=== PATIENT | male | born 1950 | race Caucasian/White ===

== ENCOUNTER 2025-01-28 08:29 | Inpatient (IN) ==
--- NOTE | 2025-01-09 12:29 | PAT Medication Instructions ---
Medication Instructions Date of Service January 09, 2025 Home Medications Cbd Oil 1 dose topical DAILY aspirin 81 mg capsule 81 mg PO QAM cholecalciferol (vitamin D3) 50 mcg (2,000 unit) tablet (Vitamin D3) 50 mcg PO DAILY escitalopram oxalate 20 mg tablet (Lexapro) 20 mg PO QAM levothyroxine 100 mcg tablet 100 mcg PO QAM lisinopril 20 mg tablet 20 mg PO QAM liver extract 1 cap PO QPM loratadine 10 mg tablet (Claritin) 10 mg PO QAM ASK your prescriber and surgeon aspirin 81 mg capsule 81 mg PO QAM STOP taking 2 weeks before surgery liver extract 1 cap PO QPM STOP taking 24 hours before surgery Cbd Oil 1 dose topical DAILY DO NOT take the morning of surgery cholecalciferol (vitamin D3) 50 mcg (2,000 unit) tablet (Vitamin D3) 50 mcg PO DAILY lisinopril 20 mg tablet 20 mg PO QAM loratadine 10 mg tablet (Claritin) 10 mg PO QAM Take morning of surgery With a small sip of water, OTHERWISE NOTHING TO EAT OR DRINK AFTER MIDNIGHT: escitalopram oxalate 20 mg tablet (Lexapro) 20 mg PO QAM levothyroxine 100 mcg tablet 100 mcg PO QAM Other Notes If you have any questions please call us at [phone] or [phone] or [phone] or [phone]
--- NOTE | 2025-01-14 12:54 | Anesthesiology Consultation ---
Date of Service January 14, 2025 Assessment & Plan (1) Encounter for pre-operative examination: Chart Review Chart Review: Acceptable Risk for Surgery (pending surgeon ordered PCP and cardio clearance, most recent cardio note/cardio testing if available ) and Patient seen in Pre Admission Testing - Awaiting PCP clearance (Dr. Carlos Caldwell- [place]) 01/20/25 - Awaiting cardio clearance (patient to call and schedule appt) - [facility] - Please fax for most recent cardiology note (last seen around ) as well as for any ECHO/stress testing in past six years Hx of syncope post op day 1-2 after major surgeries- per patient has a "strong vagus nerve" per cardio Per PAT appt on 01/14/25, no recent illness/disease exposures, illness related symptoms, or recent illness/disease positive tests. Will leave to surgeon's discretion if preop Covid testing needed Teaching & Discussion Pre-Anesthesia Teaching/Discussion Notes: Instructed NPO after midnight before surgery,except medications with 15 cc of water. Medication instructions provided according to the PAT guidelines. History Surgery Operation Date: 01/28/25 10:25 Proposed Procedures p T6-T8 Decompression, T6-T8 Extension of Fusion with Spinal Cord Monitoring - Kenn Carias, Height/Weight Height: 5 ft 10 in Weight: 104.6 kg Allergies Allergy/AdvReac Type Severity Reaction Status Date / Time No Known Allergies Allergy Verified 01/09/25 10:08 Medications Home Medications Medication Instructions Recorded Confirmed Last Taken Cbd Oil 1 dose topical DAILY 01/09/25 01/09/25 Unknown aspirin 81 mg capsule 81 mg PO QAM 01/09/25 01/09/25 Unknown cholecalciferol (vitamin D3) 50 50 mcg PO DAILY 01/09/25 01/09/25 Unknown mcg (2,000 unit) tablet (Vitamin D3) escitalopram oxalate 20 mg tablet 20 mg PO QAM 01/09/25 01/09/25 Unknown (Lexapro) levothyroxine 100 mcg tablet 100 mcg PO QAM 01/09/25 01/09/25 Unknown lisinopril 20 mg tablet 20 mg PO QAM 01/09/25 01/09/25 Unknown liver extract 1 cap PO QPM 01/09/25 01/09/25 Unknown loratadine 10 mg tablet (Claritin) 10 mg PO QAM 01/09/25 01/09/25 Unknown ascorbic acid (vitamin C) 1,000 mg 1,000 mg PO DAILY 01/14/25 01/14/25 Unknown tablet (Vitamin C) coQ10 (ubiquinol) 100 mg capsule 100 mg PO DAILY 01/14/25 01/14/25 Unknown multivitamin 1 tab PO DAILY 01/14/25 01/14/25 Unknown omega-3 fatty acids 500 mg capsule 500 mg PO DAILY 01/14/25 01/14/25 Unknown vitamin E (dl, acetate) 180 mg 180 mg PO DAILY 01/14/25 01/14/25 Unknown (400 unit) capsule Past Medical History Medical History (Updated 01/14/25 @ 13:49 by Concha De PA-C) Anxiety Chronic back pain History of anesthesia reaction pt states he "always passes out a day or two after major surgeries" History of atrial fibrillation -2000- pt states he "takes his lisinopril for this"--followed with [facility] Dr. Love (has not seen cardio x 5 years) - was on atenolol in the past- now only on Lisinopril; no AC - only ASA 81mg History of pericarditis around - had possible fluid around the heart- possibly from virus- has not seen cardio since Hypertension Hypothyroidism Osteoarthritis Scoliosis Exercise / Class Metabolic Activity III < 4 Walking/Shop/Light housework (no chest pain or SOB with flat surface ambulation - uses can for ambulation for support ) Past Family History Family History Other No family history of adverse response to anesthesia Past Surgical History Surgical History History of arthroscopy of right knee History of cardioversion (2000) @ [place] History of colonoscopy History of lumbar spinal fusion (1994) L4 in [place] History of repair of right rotator cuff (06/2024) History of tonsillectomy History of wisdom tooth extraction S/P lumbar spinal fusion @ [facility] by Dr. Ramsay Status post correction of deviated nasal septum Past Anesthesia History No Hx of Anesthesia Complications (with exception to syncope on post op day 1-2 with major surgeries ) and No Family Hx of Anesthesia Complications History of PONV No Hx of PONV and No Hx of Motion Sickness Social History Smoking Status: Never smoker Do You Dip or Chew Tobacco: No Hx Alcohol Use: No Hx Substance Use: Yes (medical marijuana use (advised on policy)) substance use type: marijuana Last Used Substance: Unknown Review of Systems - Thoracic tightness from back issues- chronic/stable - Hx snoring- no hx of sleep study Patient denies chest pain, shortness of breath at rest, reflux, cough, wheezing, palpitations. No hx of seizures, stroke, [place]. No hx of blood clots or blood transfusions Physical Exam Vital Signs VITALS BP 127/73 P 64 TEMP 97.3 SP02 95% RESP 16 Constitutional no acute distress ENMT Mouth: no TMJ clicking Thyromental Distance: > or= 3.5 Finger Breadths (3.5) Mallampati Class: I Top upper teeth crowned Partial lower denture (permanent) Neck + limited neck extension Respiratory normal respiratory effort; no respiratory distress Auscultation: lungs clear to auscultation bilaterally; no wheezes Cardiovascular Rate/Rhythm: regular rate and regular rhythm Heart Sounds: no murmur Vessels: no carotid bruit Occ extra beat Musculoskeletal Spine: no pain with cervical ROM Extremities: extremities normal to inspection Psychiatric Orientation: alert Lab Results Anesthesia Preop Results Results Anesthesia Widget: WBC 6.21 K/ul (4.8-10.8) 01/14/25 Hgb 15.2 g/dl (14.0-18.0) 01/14/25 Hct 46.9 % (42.0-52.0) 01/14/25 Plt 231 K/uL (130-400) 01/14/25 Na 140 mmol/L (136-145) 01/14/25 K 4.8 mmol/L (3.5-5.1) 01/14/25 Cl 104 mmol/L (98-107) 01/14/25 CO2 31 mmol/L (21-32) 01/14/25 BUN 20 mg/dl (6-23) 01/14/25 Creat 1.05 mg/dl (0.6-1.4) 01/14/25 Glucose Level 85 mg/dl (70-99(Fasting)) 01/14/25 PT 11.0 Seconds (9.0-12.0) 01/14/25 PTT 29 Seconds (21-31) 01/14/25 INR 1.0 (0.9-1.1) 01/14/25 Urine Color Yellow 01/14/25 Urine Appearance Slightly Cloudy (Clear) 01/14/25 Urine pH 5.5 (4.5-7.5) 01/14/25 Urine Specific [place] 1.036 (1.000-1.030) H 01/14/25 Urine Protein Negative (Negative) 01/14/25 Urine Glucose (UA) Negative (Negative) 01/14/25 Urine Ketones Trace (Negative) H 01/14/25 Urine Blood Negative (Negative) 01/14/25 Urine Nitrite Negative (Negative) 01/14/25 Urine Bilirubin Negative (Negative) 01/14/25 Urine Urobilinogen Negative (Negative) 01/14/25 Urine Leukocyte Esterase Negative (Negative) 01/14/25 Urine WBC (Auto) 0-5 /hpf (0-5) 01/14/25 Urine RBC (Auto) 0-2 /hpf (0-2) 01/14/25 Urine Hyaline Casts (Auto) 3-5 /lpf (0-2) H 01/14/25 Urine Epithelial Cells (Auto) 0-2 /hpf (0-2) 01/14/25 Urine Bacteria (Auto) None Seen (None Seen) 01/14/25 Blood Type O Positive 01/14/25 Antibody Screen NEGATIVE 01/14/25 Testing Electrocardiogram Date: 01/14/25 Findings: + NSR @ (62bpm) Left axis deviation When compared to EKG from Sep 20, 2013- no significant change was found per cardio Chest X-Ray Date: 01/14/25 Findings: + NAD
[2025-01-28] MEDS ORDERED: DEXAMETHASONE SOD INJ 4 MG/ML VIAL ONE (08:43)
[2025-01-28] MEDS ORDERED: PROPOFOL IV EMULSION 10 MG/ML 20 ML VIAL IV ONE (08:43)
[2025-01-28] MEDS ORDERED: MIDAZOLAM HCL 1 MG/ML 2ML VIAL ONE ×2 (08:43→10:10)
[2025-01-28] MEDS ORDERED: ONDANSETRON INJ 2 MG/ML 2 ML VIAL ONE (08:43)
[2025-01-28] MEDS ORDERED: ROCURONIUM BROMIDE 10 MG/ML 5 ML VIAL IV ONE (08:43)
[2025-01-28] MEDS ORDERED: fentaNYL citrate PF 100 MCG/2 ML VIAL ONE (08:43)
[2025-01-28] MEDS ORDERED: LIDOCAINE 2% 2 ML VIAL/AMP(20MG/ML) INFIL ONE (08:54)
[2025-01-28] MEDS: LR 15ML/HR IV SCH (09:25)
[2025-01-28] MEDS: LR 60ML/HR IV SCH (09:28)
[2025-01-28] MEDS: CeleBREX 200 MG CAP PO SCH (09:29)
[2025-01-28] MEDS: GABAPENTIN 300 MG CAP PO SCH (09:29)
[2025-01-28] MEDS: ACETAMINOPHEN 500 MG TAB PO SCH (09:29)
--- NOTE | 2025-01-28 09:50 | History & Physical Bridge Note ---
Date of Service January 28, 2025 History & Physical Bridge Note I have examined the patient, reviewed the History & Physical and in the interval since the performance of the History & Physical I have noted the following changes of clinical significance: no changes noted
--- NOTE | 2025-01-28 09:51 | History & Physical Report ---
Date of Service January 28, 2025 Assessment & Plan (1) Myelopathy concurrent with and due to spinal stenosis of thoracic region: Plan: Decompression T6 T8 extension and fusion T6 T8 History of Present Illness Chief Complaint: Back pain and leg weakness Primary Care Provider: Carlos Rizo DO This is a 74-year-old male presents with progressive decline in function in lower extremities and thoracic spinal stenosis is subsequently here for surgery. Allergies Allergy/AdvReac Type Severity Reaction Status Date / Time No Known Allergies Allergy Verified 01/28/25 08:48 Home Medications Medication Instructions Recorded Confirmed Type Cbd Oil 1 dose topical DAILY 01/09/25 01/28/25 History aspirin 81 mg capsule 81 mg PO QAM 01/09/25 01/28/25 History cholecalciferol (vitamin D3) 50 50 mcg PO DAILY 01/09/25 01/28/25 History mcg (2,000 unit) tablet (Vitamin D3) escitalopram oxalate 20 mg tablet 20 mg PO QAM 01/09/25 01/28/25 History (Lexapro) levothyroxine 100 mcg tablet 100 mcg PO QAM 01/09/25 01/28/25 History lisinopril 20 mg tablet 20 mg PO QAM 01/09/25 01/28/25 History liver extract 1 cap PO QPM 01/09/25 01/28/25 History loratadine 10 mg tablet (Claritin) 10 mg PO QAM 01/09/25 01/28/25 History ascorbic acid (vitamin C) 1,000 mg 1,000 mg PO DAILY 01/14/25 01/28/25 History tablet (Vitamin C) coQ10 (ubiquinol) 100 mg capsule 100 mg PO DAILY 01/14/25 01/28/25 History multivitamin 1 tab PO DAILY 01/14/25 01/28/25 History omega-3 fatty acids 500 mg capsule 500 mg PO DAILY 01/14/25 01/28/25 History vitamin E (dl, acetate) 180 mg 180 mg PO DAILY 01/14/25 01/28/25 History (400 unit) capsule Past Med/Surg History Problem List (Updated 01/28/25 @ 09:51 by Kenn Carias DO) Myelopathy concurrent with and due to spinal stenosis of thoracic region Encounter for pre-operative examination Medical History (Updated 01/28/25 @ 09:51 by Kenn Carias DO) HLD (hyperlipidemia) Pericardial effusion History of in 2018 per cardio records History of anesthesia reaction pt states he "always passes out a day or two after major surgeries" Osteoarthritis Scoliosis Chronic back pain Hypothyroidism Anxiety Hypertension History of atrial fibrillation -2000 per records - on Lisinopril and ASA Surgical History History of colonoscopy History of cardioversion (2000) @ [facility] History of arthroscopy of right knee History of wisdom tooth extraction Status post correction of deviated nasal septum History of tonsillectomy S/P lumbar spinal fusion @ [facility] by Dr. Ramsay History of lumbar spinal fusion (1994) L4 in [place] History of repair of right rotator cuff (06/2024) Family History Other No family history of adverse response to anesthesia Social History Smoking Status: Never smoker Second Hand Exposure: No; Do You Dip or Chew Tobacco: No; Tobacco Cessation Education Requested by Patient: No Hx Alcohol Use: No Hx Substance Use: Yes (medical marijuana use (advised on policy)) Last Used Substance: Unknown Preferred Language: Montenegrin Communication Ability: Effective Hardboard Supervisor Required: No Beliefs That Will Affect Care: None Current Living Situation: Spouse Other Information That Helps Us Care for You: No Feels Safe at Home: Yes Safety Concerns: Feels Safe At This Time Assistive Devices: Cane and Glasses Assistive Devices Comment: reading glasses Physical Exam Physical Exam: Patient is alert and oriented Heart regular rhythm Lungs clear Results & Data Results & Data Vital Signs (Past 12 Hours) Vital Signs Temp Pulse Resp BP Pulse Ox O2 Del Method 01/28/25 09:01 36.5 C 72 20 167/88 H 96 Room Air
[2025-01-28] MEDS ORDERED: ATROPINE SULFATE 0.1 MG/ML 10ML SYR IV PRN (10:02)
[2025-01-28] MEDS ORDERED: ePHEDrine sulfate 50 MG/ML AMP IV PRN (10:02)
[2025-01-28] MEDS ORDERED: ONDANSETRON INJ 2 MG/ML 2 ML VIAL IV PRN ×2 (10:02→14:09)
[2025-01-28] MEDS ORDERED: REMIFENTANIL HCL 1 MG VIAL IV ONE (10:06)
[2025-01-28] MEDS: ceFAZolin 2000MG 2,000 MG/15 ML SYR IV SCH ×2 (10:20→18:11)
[2025-01-28] MEDS ORDERED: KETAMINE HCL 10MG/ML SYR ONE (10:31)
[2025-01-28] MEDS ORDERED: PROPOFOL IV EMULSION 10 MG/ML 100 ML VIAL IV ONE (10:59)
[2025-01-28] MEDS ORDERED: PHENYLEPHRINE 100MCG/ML 5ML SYR ONE (11:01)
[2025-01-28] MEDS ORDERED: ePHEDrine sulfate 50 MG/ML AMP ONE (11:01)
[2025-01-28] MEDS: BUPIVACAINE/EPINEPHRINE 0.25% 1:200,000 30 ML VIAL ONE (11:14)
[2025-01-28] MEDS: ceFAZolin 330 MG/ML 1 GM VIAL ONE (11:14)
[2025-01-28] MEDS: FLOSEAL HEMOSTATIC MATRIX 10ML TOP ONE (11:52)
--- NOTE | 2025-01-28 12:10 | Operative Report ---
Post Operative Report Pre & Post Diagnosis Operation Date: 01/28/25 10:25 Pre-Op Diagnosis: Thoracic spinal stenosis with myeloradiculopathy Post-Op Diagnosis: Same I identified the patient and participated in the time-out.: Yes Procedure Operation Date: 01/28/25 10:25 Actual Procedures #1 removal of posterior instrumentation rods and screws T8-T9. #2 exploration of fusion T8-T9. #3 decompression with bilateral medial facetectomies and foraminotomies T6-T7 T7-T8. #4 posterior spinal fusion T6-T8. #5 placement of posterior instrumentation using camber rods and screws T6-T8 with connectors. #6 placement locally harvested morselized autograft posterior gutters. #7 placement infuse collagen sponge, with Koros in the posterior gutters T6-T8. Surgeon Kenn Carias, DO Surfacing Technician June Hsu Estimated Blood Loss 100 Findings Consistent with Post-Op Diagnosis Specimens None Indications This is a 74-year-old male who presents above mentioned diagnosis. With his decline in status and myelopathy is here for surgical decompression. Description of Procedure Patient is met with identified informed consent obtained. Patient was then taken to the operative suite underwent the patient placed in a prone position on the Tim table the chest padded bolsters. All bony promises well-padded eyes inspected to ensure no external precipice upon. This point the thoracolumbar spine was prepped draped no sterile fashion. Sharp dissection with the assistance of Bovie cautery performed down to and exposing the lamina transverse processes of T6 TP 7 and instrumentation at T8-T9 with as well as the connectors to the previous construct. And then proceeded move the hardware bilaterally releasing the connectors. Explored the fusion mass T8 and T9 noting it to be mature and intact. Informed complete laminectomy of T7 with bilateral medial facetectomies and foraminotomies followed by complete laminectomy of T6 with bilateral medial facetectomies and foraminotomies addressing severe spinal stenosis. Pedicle screws then placed in T6-T7-T8 bilaterally with assistance of fluoroscopy and the appropriately sized kin contoured and placed and attached to the connectors. The transverse processes of T6-T7-T8 were then burred to subcortical the bone. Infuse collagen sponge bath Koros local autograft placed in posterior gutters. 15 round LITO drain inserted. The incision was then closed with 1 Vicryl the fascia 2-0 Vicryl subcutaneously and 4 Monocryl for final skin closure. Steri-Strips and sterile dressing placed. Patient waken taken to PACU in stable condition. Please note spinal cord monitoring was utilized at the procedure no changes noted. June Hsu was present at the entire surgery and while the patient positioning complex portion of the surgery and final skin closure. I attest to the content of the Intraoperative Record and any orders documented therein. Any exceptions are noted below.
[2025-01-28] MEDS ORDERED: HYDROmorphone INJ 2 MG/ML SYR/VIAL ONE (12:17)
[2025-01-28] MEDS ORDERED: SUGAMMADEX SODIUM 200 MG/2 ML VIAL IV ONE (12:35)
--- NOTE | 2025-01-28 12:43 | Fluoroscopy Report ---
FL thoracic spine 2V CLINICAL HISTORY: T6-T8 DECOMP, T6-T8 EXTENSION OF FUSION COMPARISON STUDY: None pertinent FLUOROSCOPY TIME: 23 seconds FLUOROSCOPY IMAGES: 3 EXPOSURE DOSE: 12.43 mGy FINDINGS: Fluoroscopic guidance provided. IMPRESSION: Refer to the operative report for evaluation based upon real time fluoroscopic observatio n. ACT 112: Negative or not required by law. Electronically signed by: Oksana Dalton M.D. 01/28/2025 12:42 PM
[2025-01-28] MEDS: PROMETHAZINE HCL 6.25 MG in SODIUM CHLORIDE 0.9% 50 ML IV PRN (12:45)
[2025-01-28] MEDS: fentaNYL citrate PF 100 MCG/2 ML VIAL IV PRN (12:48)
[2025-01-28] MEDS: HYDROmorphone INJ 2 MG/ML SYR/VIAL IV PRN (13:10)
--- NOTE | 2025-01-28 13:39 | Anesthesiology Progress Note ---
Date of Service January 28, 2025 Anesthesia Post Procedure Vital Signs Vital Signs: Temp Pulse Pulse Resp BP BP Pulse Ox 01/28/25 13:25 36.4 C L 96 H 18 140/89 99 01/28/25 13:15 97 H 18 108/75 98 01/28/25 13:05 98 H 17 145/87 H 98 01/28/25 12:55 96 H 17 157/79 H 98 01/28/25 12:45 94 H 17 161/86 H 99 01/28/25 12:35 94 H 17 154/87 H 97 01/28/25 12:27 36.1 C L 87 18 155/77 H 95 01/28/25 09:01 36.5 C 72 20 167/88 H 96 O2 Del Method O2 Flow Rate 01/28/25 13:25 Nasal Cannula 2 01/28/25 13:15 Nasal Cannula 2 01/28/25 13:05 Oxymask 5 01/28/25 12:55 Oxymask 5 01/28/25 12:45 Oxymask 5 01/28/25 12:35 Oxymask 5 01/28/25 12:27 Oxymask 5 01/28/25 09:01 Room Air Pain Intensity Medial Back: Pain Intensity: 7 Transfer of Care Handoff Completed per policy Notes Mental Status: alert / awake / arousable and participated in evaluation Patient Amnestic to Procedure: Yes Nausea / Vomiting: adequately controlled Pain: adequately controlled Airway Patency, RR, SpO2: stable & adequate BP & HR: stable & adequate Hydration State: stable & adequate Anesthetic Complications: no major complications apparent
[2025-01-28] MEDS ORDERED: hydrOXYzine HCl 25 MG TAB PO PRN (14:09)
[2025-01-28] MEDS ORDERED: DO NOT ADMINISTER PNEUMOCOCCAL VACCINE PRN (14:09)
[2025-01-28] MEDS ORDERED: MAGNESIUM HYDROXIDE SUSP 30 ML UDC PO PRN (14:09)
[2025-01-28] MEDS ORDERED: NALOXONE HCL 0.4 MG/1 ML VIAL/CARP IV PRN (14:09)
[2025-01-28] MEDS ORDERED: FAMOTIDINE 20 MG TAB PO PRN (14:09)
[2025-01-28] MEDS ORDERED: ALUMINUM/MAGNESIUM SUSP 30 ML UDC PO PRN (14:09)
[2025-01-28] MEDS ORDERED: METOCLOPRAMIDE HCL INJ 5 MG/ML 2 ML VIAL IV PRN (14:09)
[2025-01-28] MEDS ORDERED: bisacodyL 10 MG SUPP PR PRN (14:09)
[2025-01-28] MEDS ORDERED: ONDANSETRON 4 MG OD TAB PO PRN (14:09)
[2025-01-28] MEDS ORDERED: LORazepam 0.5 MG TAB PO PRN (14:09)
[2025-01-28] MEDS ORDERED: diphenhydrAMINE Capsule 25 MG CAP PO PRN (14:09)
[2025-01-28] MEDS ORDERED: ACETAMINOPHEN 1,000 MG/100 ML VIAL IV PRN (14:09)
[2025-01-28] MEDS ORDERED: DO NOT ADMINISTER FLU VACCINE PRN (14:09)
[2025-01-28] MEDS ORDERED: ACETAMINOPHEN 500 MG TAB PO PRN (14:09)
[2025-01-28] MEDS ORDERED: HYDROmorphone INJ 0.5 MG/0.5 ML SYR IV PRN (14:09)
[2025-01-28] MEDS ORDERED: SOD PHOSPHATE/SOD BIPHOSPHATE ENEMA 132 ML BTL PR PRN (14:09)
[2025-01-28] MEDS ORDERED: LORazepam 2 MG/1 ML VIAL IV PRN (14:09)
[2025-01-28] MEDS ORDERED: PROMETHAZINE 12.5 MG/50.5 ML BAG IV PRN (14:09)
[2025-01-28] MEDS: SODIUM CHLORIDE 0.9% 50 ML BAG ONE (14:15)
[2025-01-28] MEDS: PROMETHAZINE HCL INJ 25 MG/ML 1 ML VIAL ONE (14:15)
[2025-01-28] MEDS: oxyCODONE HCL IR 5 MG TAB (IMMEDIATE RELEASE) PO PRN (14:39)
[2025-01-28] MEDS: dexAMETHasone 6 MG in SYRINGE 0 ML IV SCH (16:17)
[2025-01-28] MEDS: traMADol HCL 50 MG TABLET PO PRN (16:23)
[2025-01-28] MEDS: KETOROLAC 30 MG/ML VIAL IV PRN (18:10)
[2025-01-28] MEDS: DOCUSATE SODIUM/SENNA 50/8.6MG TAB PO SCH (21:21)
[2025-01-29] MEDS: HYDROmorphone INJ 1 MG/ML SYRINGE IV PRN (03:14)
[2025-01-29] MEDS: LEVOTHYROXINE SODIUM 100 MCG TABLET PO SCH (05:50)
[2025-01-29] MEDS: POLYETHYLENE (MIRALAX) 17 GM PACK PO SCH (05:50)
[2025-01-29] MEDS: LORATADINE 10 MG TAB PO SCH (08:00)
[2025-01-29] MEDS: MULTIVITAMIN TAB PO SCH (08:00)
[2025-01-29] MEDS: ASCORBIC ACID 500 MG TAB PO SCH (08:00)
[2025-01-29] MEDS: ESCITALOPRAM OXALATE 20 MG TAB PO SCH (08:00)
[2025-01-29] MEDS: lisinopril 20 MG TAB PO SCH (08:00)
[2025-01-29] MEDS: ASPIRIN 81 MG ECTAB PO SCH (08:01)
[2025-01-29] MEDS: CHOLECALCIFEROL 25 MCG (1000 UNITS) TAB PO SCH (08:01)
--- NOTE | 2025-01-29 08:18 | Hospitalist Consultation ---
Date of Consultation January 29, 2025 Assessment & Plan (1) S/P spinal surgery: This is a 74yo M with PMH of HTN, HLD, hypothyroidism, anxiety and other medical problems listed below who is POD#1 s/p removal of posterior instrumentation rods and screws T8-T9, exploration of fusion T8-T9, decompression with bilateral medial facetectomies and foraminotomies T6-T7 T7-T8, posterior spinal fusion T6- T8 etc by Dr. Carias. POD#1 s/p removal of posterior instrumentation rods and screws T8-T9, exploration of fusion T8-T9, decompression with bilateral medial facetectomies and foraminotomies T6-T7 T7-T8, posterior spinal fusion T6-T8 etc by Dr. Carias Per ortho for pain control, wound care, anticoagulation and activities Monitor H&H (pre-op hgb 15.2, EBL 100ml), continue incentive spirometry, PT/OT when appropriate (2) Hypertension: BP elevated, optimize pain control. Continue home lisinopril (3) Hypothyroidism: Continue levothyroxine (4) Anxiety: Continue Lexapro DVT Ppx: SCDs Code status: FULL PCP: Sallie Dispo: Admitted to med/surg. Discharge per primary I spent a total of 60 minutes coordinating, documenting, and providing care for this patient excluding time spent in the performance of separately billed services or time spent by another provider/QHP. Patient seen in collaboration with Dr. Marks. Please see addendum. Supervising Physician Co-Signing Physician Notes I have seen and discussed the case with the collaborating advanced practitioner. I agree with the above progress note. I have reviewed and confirmed the patients medical history, the findings on physical examination, and the patients diagnosis and treatment plan with Scott OROZCO and agree with the information documented. Mr. Oconnor is a 74 yo M s/p POD#1 s/p removal of posterior instrumentation rods and screws T8-T9, exploration of fusion T8-T9, decompression with bilateral medial facetectomies and foraminotomies T6-T7 T7-T8, posterior spinal fusion T6- T8 etc by Dr. Carias. Patient overall medically stable. Home BP meds continued. #Acute blood loss anemia 2/2 post op losses Pre operative 15, down to 13.7, trend hgb and transfuse < 7 or symptomatic I spent a total of 10 minutes coordinating, documenting, and providing care for this patient excluding time spent in the performance of separately billed services. All of the aforementioned completed outside of collaborating with the assigned advanced practitioner for a full treatment plan. I have reviewed the advanced practitioner's documentation, and I agree with, and take responsibility for the plan of care History of Present Illness Reason for Consultation: post op med mgmt Attending Physician: Kenn Carias, DO History of Present Illness This is a 74yo M with PMH of HTN, HLD, hypothyroidism, anxiety and other medical problems listed below who is POD#1 s/p removal of posterior instrumentation rods and screws T8-T9, exploration of fusion T8-T9, decompression with bilateral medial facetectomies and foraminotomies T6-T7 T7-T8, posterior spinal fusion T6- T8 etc by Dr. Carias. Patient with some surgical site discomfort. RN to give Toradol. Denies any paresthesias or pain in bilateral lower extremities. Ambulated with therapy this morning. Nursing to take out Iyer catheter now. No fever, chills, chest pain, shortness of breath, nausea, vomiting, abdominal pain, dysuria. Passing flatus postoperatively. Allergies Allergy/AdvReac Type Severity Reaction Status Date / Time No Known Allergies Allergy Verified 01/28/25 08:48 Home Medications Medication Instructions Recorded Confirmed Type Cbd Oil 1 dose topical DAILY 01/09/25 01/28/25 History aspirin 81 mg capsule 81 mg PO QAM 01/09/25 01/28/25 History cholecalciferol (vitamin D3) 50 50 mcg PO DAILY 01/09/25 01/28/25 History mcg (2,000 unit) tablet (Vitamin D3) escitalopram oxalate 20 mg tablet 20 mg PO QAM 01/09/25 01/28/25 History (Lexapro) levothyroxine 100 mcg tablet 100 mcg PO QAM 01/09/25 01/28/25 History lisinopril 20 mg tablet 20 mg PO QAM 01/09/25 01/28/25 History liver extract 1 cap PO QPM 01/09/25 01/28/25 History loratadine 10 mg tablet (Claritin) 10 mg PO QAM 01/09/25 01/28/25 History ascorbic acid (vitamin C) 1,000 mg 1,000 mg PO DAILY 01/14/25 01/28/25 History tablet (Vitamin C) coQ10 (ubiquinol) 100 mg capsule 100 mg PO DAILY 01/14/25 01/28/25 History multivitamin 1 tab PO DAILY 01/14/25 01/28/25 History omega-3 fatty acids 500 mg capsule 500 mg PO DAILY 01/14/25 01/28/25 History vitamin E (dl, acetate) 180 mg 180 mg PO DAILY 01/14/25 01/28/25 History (400 unit) capsule Patient History Medical History HLD (hyperlipidemia) Pericardial effusion History of in 2018 per cardio records History of anesthesia reaction pt states he "always passes out a day or two after major surgeries" Osteoarthritis Scoliosis Chronic back pain Hypothyroidism Anxiety Hypertension History of atrial fibrillation -2000 per records - on Lisinopril and ASA Surgical History History of colonoscopy History of cardioversion (2000) @ [place] History of arthroscopy of right knee History of wisdom tooth extraction Status post correction of deviated nasal septum History of tonsillectomy S/P lumbar spinal fusion @ [facility] by Dr. Ramsay History of lumbar spinal fusion (1994) L4 in [place] History of repair of right rotator cuff (06/2024) Family History Other No family history of adverse response to anesthesia Social History Smoking Status: Never smoker Second Hand Exposure: No; Do You Dip or Chew Tobacco: No; Tobacco Cessation Education Requested by Patient: No Hx Alcohol Use: No Hx Substance Use: Yes (medical marijuana use (advised on policy)) Last Used Substance: Unknown Preferred Language: Pakistani Communication Ability: Effective Beef Pusher Required: No Beliefs That Will Affect Care: None Current Living Situation: Spouse Other Information That Helps Us Care for You: No Feels Safe at Home: Yes Safety Concerns: Feels Safe At This Time Assistive Devices: Cane and Walker Assistive Devices Comment: reading glasses Review of Systems Review of Systems: At least ten systems reviewed and negative except as noted in the HPI. Physical Exam Physical Exam: Gen: WD/WN, NAD, sitting up in bed, A&Ox3 HEENT: Normocephalic, atraumatic, conjunctivae moist, sclerae anicteric, mucous membranes moist Lung: Clear to Auscultation bilaterally, no wheezes/rales/rhonchi Heart: Regular rate, regular rhythm Abdomen: Soft, NT, ND +BS x 4 : Iyer Extremities: Spinal dressing c/d/i. LITO drain visualized, no edema Skin: Warm, no rash Results & Data Results & Data Vital Signs (Past 12 Hours) Vital Signs Temp Pulse Resp BP Pulse Ox O2 Del Method 01/29/25 08:08 36.7 C 78 18 165/66 H 95 Room Air 01/29/25 02:53 36.5 C 74 16 143/77 H 95 Room Air 01/28/25 23:01 36.8 C 92 H 16 140/81 94 Room Air Laboratory Results Short CBC 01/29/25 Range/Units 07:44 WBC 13.46 H (4.8-10.8) K/ul Hgb 13.7 L (14.0-18.0) g/dl Hct 41.3 L (42.0-52.0) % Plt Count 215 (130-400) K/uL BMP 01/29/25 07:44 Sodium 138 Potassium 4.0 Chloride 105 Carbon Dioxide 28 BUN 18 Creatinine 0.87 Glucose 141 H Calcium 8.8 Diagnostic Findings Thoracic Spine X-Ray 01/28/25 00:00 FL thoracic spine 2V CLINICAL HISTORY: T6-T8 DECOMP, T6-T8 EXTENSION OF FUSION COMPARISON STUDY: None pertinent FLUOROSCOPY TIME: 23 seconds FLUOROSCOPY IMAGES: 3 EXPOSURE DOSE: 12.43 mGy FINDINGS: Fluoroscopic guidance provided. IMPRESSION: Refer to the operative report for evaluation based upon real time fluoroscopic observation. ACT 112: Negative or not required by law. Electronically signed by: Oksana Dalton M.D. 01/28/2025 12:42 PM
[2025-01-29 08:27] LABS: Basophils # (auto) 0.01 K/uL (0.00-0.20); Basophils % (auto) 0.1 %; Hematocrit (blood only) 41.3 % (42.0-52.0); Hemoglobin 13.7 g/dl (14.0-18.0); Immature Granulocytes # (auto) 0.06 K/uL (0.01-0.20); Immature Granulocytes % (auto) 0.4 %; Lymphocytes # (auto) 0.78 K/uL (1.20-3.40); Lymphocytes % (auto) 5.8 %; Mean Corpuscular Hemoglobin 29.2 pg (25.0-34.0); Mean Corpuscular Hgb Conc 33.2 g/dL (32.0-36.0); Mean Corpuscular Volume 88.1 fL (80.0-100.0); Mean Platelet Volume 10.2 fL (9.4-12.4); Monocytes # (auto) 0.53 K/uL (0.11-0.59); Monocytes % (auto) 3.9 %; Neutrophils # (auto) 12.08 K/uL (1.40-6.50); Neutrophils % (auto) 89.8 %; Platelet Count 215 K/uL (130-400); RDW Coefficient of Variation 13.2 % (11.5-14.5); Red Blood Count 4.69 M/uL (4.70-6.10); White Blood Count 13.46 K/ul (4.8-10.8)
[2025-01-29 08:50] LABS: BUN Creatinine Ratio 20.7 (10-20); Calcium 8.8 mg/dl (8.6-10.3); Creatinine Clr Calc Pharmacy 89.9 ml/min
[2025-01-29] MEDS ORDERED: NON-FORMULARY MEDICATION (Coq10 (Ubiquinol) 100 mg Capsule) PO SCH (09:00)
--- NOTE | 2025-01-29 10:45 | Orthopedic Progress Note ---
Date of Service January 29, 2025 Assessment & Plan (1) Myelopathy concurrent with and due to spinal stenosis of thoracic region: Plan: Alva postoperative day 1 status post T6-T8 decompression and fusion. Will continue with ambulation. Maintain LITO drain. DVT prophylaxis is in the form teds and SCDs. Continue with aggressive bowel regimen. Admission and Anticipated Discharge Date Admission Date: January 28, 2025 Subjective Alva postoperative day 1 status post T6-T8 decompression and fusion. He is doing well. He is up been up and ambulatory throughout the night. Legs improved. Paresthesias resolved. Back pain is controlled. H&H this morning are 13.7 and 41.3 respectively. LITO drain output last shift was 70 cc. No other complaints. Review of Systems Review of Systems: All systems reviewed & are unremarkable except as noted in HPI & below Physical Exam Physical Exam: He is laying in bed in no acute distress. He is alert and oriented x 3 Dressing is clean dry and intact with functioning LITO drain Strength intact bilateral lower extremities BRIAN hose intact bilateral lower extremities Calf soft and nontender bilaterally Results & Data Vital Signs (Past 12 Hours) Vital Signs Temp Pulse Resp BP Pulse Ox O2 Del Method 01/29/25 08:08 36.7 C 78 18 165/66 H 95 Room Air 01/29/25 02:53 36.5 C 74 16 143/77 H 95 Room Air 01/28/25 23:01 36.8 C 92 H 16 140/81 94 Room Air
[2025-01-30] MEDS: KETOROLAC TROMETHAMINE 15 MG/ML VIAL IV PRN (06:27)
[2025-01-30 07:19] LABS: Hematocrit (blood only) 37.5 % (42.0-52.0); Hemoglobin 12.7 g/dl (14.0-18.0); Mean Corpuscular Hgb Conc 33.9 g/dL (32.0-36.0); Mean Corpuscular Volume 88.7 fL (80.0-100.0); Mean Platelet Volume 10.4 fL (9.4-12.4); Platelet Count 197 K/uL (130-400); RDW Coefficient of Variation 13.2 % (11.5-14.5); RDW Standard Deviation 43.2 fL (36.4-46.3); Red Blood Count 4.23 M/uL (4.70-6.10); White Blood Count 10.39 K/ul (4.8-10.8)
[2025-01-30 07:27] LABS: BUN Creatinine Ratio 27.5 (10-20); Calcium 8.4 mg/dl (8.6-10.3); Creatinine Clr Calc Pharmacy 97.7 ml/min; Potassium 3.8 mmol/L (3.5-5.1)
--- NOTE | 2025-01-30 08:58 | Hospitalist Progress Note ---
Date of Service January 30, 2025 Assessment & Plan (1) S/P spinal surgery: Plan: This is a 74yo M with PMH of HTN, HLD, hypothyroidism, anxiety and other medical problems listed below who is POD#2 s/p removal of posterior instrumentation rods and screws T8-T9, exploration of fusion T8-T9, decompression with bilateral medial facetectomies and foraminotomies T6-T7 T7-T8, posterior spinal fusion T6- T8 etc by Dr. Carias. POD#2 s/p removal of posterior instrumentation rods and screws T8-T9, exploration of fusion T8-T9, decompression with bilateral medial facetectomies and foraminotomies T6-T7 T7-T8, posterior spinal fusion T6-T8 etc by Dr. Carias Per ortho for pain control, wound care, anticoagulation and activities Continue incentive spirometry, PT/OT when appropriate (2) Acute blood loss anemia: Plan: 2/2 post operative losses Pre operative hgb15, down to 13.7 -> 12. 7 today Continue to trend hgb and transfuse < 7 or symptomatic (3) Hypertension: Plan: BP elevated, optimize pain control. Continue home lisinopril (4) Hypothyroidism: Plan: Continue levothyroxine (5) Anxiety: Plan: Continue Lexapro DVT Ppx: SCDs Code status: FULL PCP: Sallie Dispo: Admitted to med/surg. Primary anticipates discharge tomorrow I spent a total of 40 minutes coordinating, documenting, and providing care for this patient excluding time spent in the performance of separately billed services or time spent by another provider/QHP. Patient seen in collaboration with Dr. Marks. Please see addendum. Admission and Anticipated Discharge Date Admission Date: January 28, 2025 Supervising Physician Co-Signing Physician Notes I have seen and discussed the case with the collaborating advanced practitioner. I agree with the above progress note. I have reviewed and confirmed the patients medical history, the findings on physical examination, and the patients diagnosis and treatment plan with Scott OROZCO and agree with the information documented. Mr. Oconnor is a 74 yo M s/p POD#2 s/p removal of posterior instrumentation rods and screws T8-T9, exploration of fusion T8-T9, decompression with bilateral medial facetectomies and foraminotomies T6-T7 T7-T8, posterior spinal fusion T6- T8 etc by Dr. Carias. Patient remains medically stable. Home BP meds continued. I have reviewed the advanced practitioner's documentation, and I agree with, and take responsibility for the plan of care Subjective Seen and examined in 387-2. Feeling better today. Still with surgical site discomfort but participating with therapy without issue. No F/C, lightheadedness, CP, SOB, N/V, abd pain, dysuria. Urinating without issue with taylor removed. Had a small bowel movement this AM. Review of Systems Review of Systems: At least ten systems reviewed and negative except as noted in the HPI. Physical Exam Physical Exam: Gen: WD/WN, NAD, sitting up in bed, A&Ox3 HEENT: Normocephalic, atraumatic, conjunctivae moist, sclerae anicteric, mucous membranes moist Lung: Clear to Auscultation bilaterally, no wheezes/rales/rhonchi Heart: Regular rate, regular rhythm Abdomen: Soft, NT, ND +BS x 4 Extremities: Spinal dressing c/d/i. LITO drain visualized, no edema Skin: Warm, no rash Results & Data Results & Data Vital Signs (Past 12 Hours) Vital Signs Temp Pulse Resp BP Pulse Ox O2 Del Method 01/30/25 07:00 36.4 C L 60 16 161/77 H 96 Room Air Laboratory Results Short CBC 01/30/25 Range/Units 06:36 WBC 10.39 (4.8-10.8) K/ul Hgb 12.7 L (14.0-18.0) g/dl Hct 37.5 L (42.0-52.0) % Plt Count 197 (130-400) K/uL BMP 01/30/25 06:36 Sodium 138 Potassium 3.8 Chloride 104 Carbon Dioxide 31 BUN 22 Creatinine 0.80 Glucose 98 Calcium 8.4 L Diagnostic Findings Thoracic Spine X-Ray 01/28/25 00:00 FL thoracic spine 2V CLINICAL HISTORY: T6-T8 DECOMP, T6-T8 EXTENSION OF FUSION COMPARISON STUDY: None pertinent FLUOROSCOPY TIME: 23 seconds FLUOROSCOPY IMAGES: 3 EXPOSURE DOSE: 12.43 mGy FINDINGS: Fluoroscopic guidance provided. IMPRESSION: Refer to the operative report for evaluation based upon real time fluoroscopic observation. ACT 112: Negative or not required by law. Electronically signed by: Oksana Dalton M.D. 01/28/2025 12:42 PM
--- NOTE | 2025-01-30 10:08 | Orthopedic Progress Note ---
Date of Service January 30, 2025 Assessment & Plan (1) Myelopathy concurrent with and due to spinal stenosis of thoracic region: Plan: At this time we will continue physical therapy monitor his LITO output anticipate discharge home tomorrow. Admission and Anticipated Discharge Date Admission Date: January 28, 2025 Subjective Patient's back pain is controlled. He is tolerating ambulation. He uses his walker. Physical Exam Physical Exam: Patient is good strength testing. He is out of bed without difficulty. Results & Data Vital Signs (Past 12 Hours) Vital Signs Temp Pulse Resp BP Pulse Ox O2 Del Method 01/30/25 07:00 36.4 C L 60 16 161/77 H 96 Room Air
[2025-01-31 07:22] LABS: Hematocrit (blood only) 40.6 % (42.0-52.0); Hemoglobin 13.6 g/dl (14.0-18.0); Mean Corpuscular Hemoglobin 29.5 pg (25.0-34.0); Mean Corpuscular Hgb Conc 33.5 g/dL (32.0-36.0); Mean Corpuscular Volume 88.1 fL (80.0-100.0); Mean Platelet Volume 9.9 fL (9.4-12.4); Platelet Count 201 K/uL (130-400); RDW Coefficient of Variation 13.2 % (11.5-14.5); RDW Standard Deviation 42.6 fL (36.4-46.3); Red Blood Count 4.61 M/uL (4.70-6.10); White Blood Count 8.12 K/ul (4.8-10.8)
[2025-01-31 07:47] LABS: BUN Creatinine Ratio 30.8 (10-20); Calcium 8.6 mg/dl (8.6-10.3); Creatinine Clr Calc Pharmacy 100.2 ml/min; Potassium 3.7 mmol/L (3.5-5.1)
[2025-01-31 07:49] VITALS: BP 178/90; RESP 17; TEMP 97.9; O2SAT 96
--- NOTE | 2025-01-31 09:59 | Hospitalist Progress Note ---
Date of Service January 31, 2025 Assessment & Plan (1) S/P spinal surgery: Plan: This is a 74yo M with PMH of HTN, HLD, hypothyroidism, anxiety and other medical problems listed below who is POD#2 s/p removal of posterior instrumentation rods and screws T8-T9, exploration of fusion T8-T9, decompression with bilateral medial facetectomies and foraminotomies T6-T7 T7-T8, posterior spinal fusion T6- T8 etc by Dr. Carias. POD#3 s/p removal of posterior instrumentation rods and screws T8-T9, exploration of fusion T8-T9, decompression with bilateral medial facetectomies and foraminotomies T6-T7 T7-T8, posterior spinal fusion T6-T8 etc by Dr. Carias Per ortho for pain control, wound care, anticoagulation and activities Continue incentive spirometry, PT/OT when appropriate (2) Acute blood loss anemia: Plan: 2/2 post operative losses Pre operative hgb15, down to 13.7 -> 12. 7 --> back to 13.6 today stable (3) Hypertension: Plan: BP elevated, optimize pain control. Pt feels likely situational, pain and anxiety related. Denies elevated blood pressure at home He is encouraged to please monitor blood pressure twice daily, 1st thing in the morning and a random time in the afternoon. Please keep a log of your blood pressures. Goal Blood pressure for you is less than 140/90. If you consistently seen your blood pressures elevated greater than your goal please follow up with Dr. Alcazar for further advice. (4) Hypothyroidism: Plan: Continue levothyroxine (5) Anxiety: Plan: Continue Lexapro DVT Ppx: SCDs Code status: FULL PCP: Sallie Dispo: Discharge to home today I spent a total of 41 minutes coordinating, documenting, and providing care for this patient excluding time spent in the performance of separately billed services or time spent by another provider/QHP. Patient seen in collaboration with Dr. Marks. Please see addendum. Admission and Anticipated Discharge Date Admission Date: January 28, 2025 Supervising Physician Co-Signing Physician Notes I have seen and discussed the case with the collaborating advanced practitioner. I agree with the above progress note. I have reviewed and confirmed the patients medical history, the findings on physical examination, and the patients diagnosis and treatment plan with Zapsky PA-C and agree with the information documented. Mr. Oconnor is a 74 yo M s/p POD#3 s/p removal of posterior instrumentation rods and screws T8-T9, exploration of fusion T8-T9, decompression with bilateral medial facetectomies and foraminotomies T6-T7 T7-T8, posterior spinal fusion T6- T8 etc by Dr. Carias. Patient remains medically stable. Home BP meds continued. Recommend follow up with pcp for bp med titration I have reviewed the advanced practitioner's documentation, and I agree with, and take responsibility for the plan of care Subjective Pt was seen and examined in room 387-2. F/U HTN in setting of post op lumbar surgery. He offers no concerns this morning. He has a good appetite. He passed flatus and moved his bowels. Currently he denies KERN, lightheaded, dizziness, chest pain, sob, n/v. He is planning to be discharged today. He feels his blood pressure is pain related, situational and his roommate is giving him anxiety. Review of Systems Review of Systems: All systems reviewed & are unremarkable except as noted in HPI & below Physical Exam Physical Exam: Gen: WD/WN, NAD, A&O x3, M HEENT: Normocephalic, atraumatic, conjunctivae moist, sclerae anicteric, mucous membranes moist. Lung: Clear to Auscultation bilaterally, no wheezes/rales/rhonchi Heart: Regular rate, regular rhythm, no murmurs, rubs, or gallops Abdomen: Soft, NT, ND +BS x 4 Extremities: No edema, lumbar dressing CDI, manasa drain with serosang drainage Skin: Warm, no rash, negative turgor. Results & Data Results & Data Vital Signs (Past 12 Hours) Vital Signs Temp Pulse Pulse Resp BP Pulse Ox O2 Del Method 01/31/25 07:46 36.6 C 64 17 178/90 H 96 Room Air 01/30/25 22:53 37.1 C 76 18 181/89 H 95 Room Air Laboratory Results I have independently reviewed and interpreted patient's cbc, bmp Medications Administered Current Inpatient Medications Acetaminophen (Acetaminophen 500 Mg Tab) 1,000 mg PO Q8H PRN PRN Reason: MILD Pain Scale 1,2,3 & Pre PT Stop: 02/27/25 14:08 Al Hydrox/Mg Hydrox/Simethicone (Aluminum/Magnesium Susp 30 Ml Udc) 30 ml PO Q6H PRN PRN Reason: Dyspepsia Stop: 02/27/25 14:08 Ascorbic Acid (Ascorbic Acid 500 Mg Tab) 1,000 mg PO DAILY [facility] Stop: 02/28/25 08:59 Last Admin: 01/31/25 09:35 Dose: 1,000 mg Aspirin (Aspirin 81 Mg Ectab) 81 mg PO QAM [facility] Stop: 02/28/25 08:59 Last Admin: 01/31/25 09:35 Dose: 81 mg Bisacodyl (Bisacodyl 10 Mg Supp) 10 mg NJ DAILY PRN PRN Reason: Constipation Stop: 02/27/25 14:08 Diphenhydramine HCl (Diphenhydramine Capsule 25 Mg Cap) 25 mg PO Q6H PRN PRN Reason: Allergic Rhinitis/Insomnia Stop: 02/27/25 14:08 Escitalopram Oxalate (Escitalopram Oxalate 20 Mg Tab) [facility] [place] Stop: 02/28/25 08:59 Last Admin: 01/31/25 09:34 Dose: 20 mg Famotidine (Famotidine 20 Mg Tab) 20 mg PO Q12H PRN PRN Reason: Dyspepsia Stop: 02/27/25 14:08 Hydromorphone HCl (Hydromorphone Inj 0.5 Mg/0.5 Ml Syr) 0.5 mg IV Q3H PRN PRN Reason: MODERATE Pain (Scale 4,5,6) & Pre PT Stop: 02/11/25 14:08 Hydromorphone HCl (Hydromorphone Inj 1 Mg/Ml Syringe) 1 mg IV Q3H PRN PRN Reason: SEVERE Pain (Scale 7,8,9,10) Stop: 02/11/25 14:08 Last Admin: 01/30/25 16:39 Dose: 1 mg Hydroxyzine HCl (Hydroxyzine Hcl 25 Mg Tab) 25 mg PO Q8H PRN PRN Reason: Anxiety Stop: 02/27/25 14:08 Promethazine HCl (Phenergan) 12.5 mg in 50.5 mls @ 202 mls/hr IV Q6H PRN PRN Reason: Nausea And Vomiting Stop: 02/27/25 14:08 Influenza Virus Vaccine Quadrival (Do Not Administer Flu Vaccine) 1 each N/A PRN PRN PRN Reason: Notification Stop: 02/27/25 14:08 Levothyroxine Sodium (Levothyroxine Sodium 100 Mcg Tablet) 100 mcg PO DAILYBB [facility] Stop: 02/28/25 06:29 Last Admin: 01/31/25 05:35 Dose: 100 mcg Lisinopril (Lisinopril 20 Mg Tab) 20 mg PO QAM [facility] Stop: 02/28/25 08:59 Last Admin: 01/31/25 09:34 Dose: 20 mg Loratadine (Loratadine 10 Mg Tab) 10 mg PO QAM [facility] Stop: 02/28/25 08:59 Last Admin: 01/31/25 09:35 Dose: 10 mg Lorazepam (Lorazepam 0.5 Mg Tab) 0.5 mg PO Q8H PRN PRN Reason: Sedation/Anxiety Stop: 02/27/25 14:08 Lorazepam (Lorazepam 2 Mg/1 Ml Vial) 0.5 mg IV Q8H PRN PRN Reason: Sedation/Anxiety Stop: 02/27/25 14:08 Magnesium Hydroxide (Magnesium Hydroxide Susp 30 Ml Udc) 30 ml PO Q24H PRN PRN Reason: Constipation Stop: 02/27/25 14:08 Metoclopramide HCl (Metoclopramide Hcl Inj 5 Mg/Ml 2 Ml Vial) 10 mg IV Q6H PRN PRN Reason: Nausea &/or Vomiting Stop: 02/27/25 14:08 Multivitamins (Multivitamin Tab) 1 tab PO DAILY [facility] Stop: 02/28/25 08:59 Last Admin: 01/31/25 09:35 Dose: 1 tab Naloxone HCl (Naloxone Hcl 0.4 Mg/1 Ml Vial/Carp) 0.1 mg IV Q5M PRN PRN Reason: Oversedation/Resp depression Stop: 02/27/25 14:08 Ondansetron HCl (Ondansetron Inj 2 Mg/Ml 2 Ml Vial) 4 mg IV Q6H PRN PRN Reason: Nausea &/or Vomiting Stop: 02/27/25 14:08 Ondansetron HCl (Ondansetron 4 Mg Od Tab) 4 mg PO Q6H PRN PRN Reason: Nausea Stop: 02/27/25 14:08 Oxycodone HCl (Oxycodone Hcl Ir 5 Mg Tab (Immediate Release)) 5 - 10 mg PO Q4H PRN PRN Reason: Pain & Pre PT Stop: 02/11/25 14:08 Last Admin: 01/31/25 05:35 Dose: 10 mg Pneumococcal Polyvalent Vaccine (Do Not Administer Pneumococcal Vaccine) 1 each N/A PRN PRN PRN Reason: Notification Stop: 02/27/25 14:08 Senna/Docusate Sodium (Docusate Sodium/Senna 50/8.6mg Tab) 2 tab PO HS [facility] Stop: 02/27/25 20:59 Last Admin: 01/30/25 20:03 Dose: 2 tab Sodium Biphosphate/Sodium Phosphate (Sod Phosphate/Sod Biphosphate Enema 132 Ml Btl) 132 ml NJ ONE PRN PRN Reason: Constipation Stop: 02/27/25 14:08 Tramadol HCl (Tramadol Hcl 50 Mg Tablet) 50 - 100 mg PO Q4H PRN PRN Reason: Moderate-Severe pain & Pre PT Stop: 02/27/25 14:08 Last Admin: 01/31/25 07:22 Dose: 100 mg Vitamin D (Cholecalciferol 25 Mcg (1000 Units) Tab) 50 mcg PO DAILY [facility] Stop: 02/28/25 08:59 Last Admin: 01/31/25 09:35 Dose: 50 mcg
--- NOTE | 2025-01-31 10:50 | Discharge Summary ---
Date of Service January 31, 2025 Admission HPI Per Admitting Provider This is a 74-year-old male presents with progressive decline in function in lower extremities and thoracic spinal stenosis is subsequently here for surgery. Principal Diagnosis Thoracic spinal stenosis with myelopathy Discharge Data Allergies Allergy/AdvReac Type Severity Reaction Status Date / Time No Known Allergies Allergy Verified 01/28/25 08:48 Consultations 01/28/25 14:09 Consult Hospitalist Routine Procedures Performed Operation Date: 01/28/25 10:25 Actual Procedures p T6-T8 Decompression, T6-T8 Extension of Fusion, Spinal Cord Monitoring(Not Applicable) - Kenn Carias DO Ordered Studies 01/28/25 [place] thoracic spine 2V Routine Hospital Course (1) Myelopathy concurrent with and due to spinal stenosis of thoracic region: Patient underwent thoracic decompression fusion tolerated as well as taken to the orthopedic floor postoperative. Postop he progressed appropriately. Pain controlled. Extra strength testing. LITO drain decreasing. Subsidy discharged home. Discharge orders and instructions from chart for further review. Total Time Total Time Spent Total Time Spent (In Minutes): 20 minutes Discharge Plan Discharge Items Patient Disposition: Home - Self-Care Reason For Visit: Thoracic Degenerative Disc Disease, Pain in Thorac Discharge Diagnosis: Thoracic spinal stenosis Activity: As commented below Non-emergency contact: Primary Care Provider Call non-emergency contact if: you have any medication questions Follow-up/Referrals: Carlos Rizo DO [Primary Care Provider] - Diet: Regular Addtl Attending Provider Instructions: ACTIVITY RECOMMENDATIONS: SELF CARE INSTRUCTIONS AFTER THORACIC/LUMBAR FUSIONS 1. You may walk to your tolerance. It is good exercise for your legs and back. Expect some back and intermittent leg aches and pains. 2. You may perform "counter-top" level activities (make a sandwich, socorro with a project, etc.). 3. No bending or lifting of more than 10 pounds or back twisting of any nature (roll like a log when turning in bed). 4. You may ride in a car for 20-30 minutes at a time. No driving until after your first visit with your doctor. 5. Frequent changes of position and restricting sitting to 30 minutes at a time will help limit the amount of back spasms and stiffness you may experience. 6. You may discontinue the use of ambulatory aids (cane, crutches, etc.) once your strength and confidence allow. 7. You may marketing trainee the shower and let water strike your incision when you arrive home at least once daily. Do not take a tub bath, sit in a hot tub or go into a swimming pool until after your first recheck in the office. 8. You may resume previous diet. SPECIAL CARE INSTRUCTIONS: VERY IMPORTANT TO READ AND REVIEW A. Your surgical incision has been closed with a cosmetic suture under the skin that will dissolve in about 6 weeks. In 14 days, you can use a pair of clean scissors and cut the suture that is left outside of the skin at the ends of your incision. 1. The small skin tapes can be removed 7 days after surgery if they have not fallen off by that point. 2. You may keep the wound open to air as much as possible to promote healing after post-op day number 5 unless told otherwise by your doctor. 3. If you think the wound looks like it is becoming infected (redness or worsening drainage) and/or you are experiencing fever, chill or worsening back pain and muscle spasms, contact the office so that we may evaluate you as soon as possible. B. Complications are uncommon, but please contact us if you have any signs or symptoms of: 1. wound infection (fever higher than 102.5 degrees F, redness, separation of wound, drainage, or increasing pain from the incision) 2. blood clots in legs (pain, swelling, redness and warmth in legs) 3. urinary tract infection (fever higher than 102.5 degrees F, burning upon urination or increased frequency of urination) 4. nerve problems (inability to walk on your toes or heels, numbness, loss of bowel or bladder control) 5. any other symptoms that concern you C. Please call the office at if you have any concerns or questions about your operation or recovery. D. No smoking! Smoking drastically decreases the chance of a solid fusion. E. Do not take any anti-inflammatory medications (Indocin, Advil, Motrin, Aspirin, Naprosyn, etc.) as these may inhibit the chance of a solid fusion. Tylenol is okay to take for pain. MANAGING PAIN AFTER SPINAL SURGERY 1. Narcotic medication is intended for short-term use and will be provided for surgical pain. Surgical pain usually lasts for a period of 4-6 weeks. Narcotic medication includes Percocet, Vicodin, Darvocet, Tylenol #3 or Lortab. 2. Longer-term pain is more appropriately treated with non-narcotic medication such as Tylenol ES. 3. Muscle spasm is not appropriately treated with narcotics. Muscle relaxers such as Soma, Flexeril or Skelaxin can be used along with Tylenol ES. 4. Remember that we all live with some "aches and pains". This is not unusual or uncommon after an injury or as we get older. a. Back pain is expected and may include muscle spasms for 4 to 6 weeks after surgery. The pain should gradually improve. If the pain worsens for no apparent reason, please contact the office. b. Intermittent leg pain may also be experienced and should not be concerned about unless it worsens for no apparent reason. If so, please contact the office. 5. We will provide appropriate medication within the normal guidelines of their prescribed use. We will also be very cautious and aware of potential abuse and extended duration of patients' medication needs. a. Pain medications are for your comfort and to assist with sleep and rest so that the tissue can heal. They are not provided in order to return to normal activity and should not be used through the day. To do so or worsening pain at night can result from ongoing tissue damage and development of tolerance to the prescribed medicine. 6. Please allow 2-3 days to process refills. Prescriptions will not be mailed but must be picked up at the office. FOLLOW UP VISIT: Keep your scheduled follow-up appointment. Any questions, please call the office at . Addtl Elevator Constructor Supervisor Provider Instructions: During your hospital stay your blood pressure was consistently elevated. When you are discharged home please monitor your blood pressure twice daily, 1st thing in the morning and a random time in the afternoon. Please keep a log of your blood pressures. Goal Blood pressure for you is less than 140/90. If you consistently find your blood pressures are elevated please follow up with Dr. Alcazar for further advice. Pending Studies at Discharge: No Stand-Alone Forms: My [id number], Smoking Cessation Medications and DC Order Prescriptions: New oxycodone 5 mg tablet 5 mg PO Q6H PRN (Reason: pain) Qty: 30 0RF Continued lisinopril 20 mg Tablet 20 mg PO QAM levothyroxine 100 mcg Tablet 100 mcg PO QAM loratadine [Claritin] 10 mg Tablet 10 mg PO QAM escitalopram oxalate [Lexapro] 20 mg Tablet 20 mg PO QAM aspirin 81 mg Capsule 81 mg PO QAM cholecalciferol (vitamin D3) [Vitamin D3] 50 mcg (2,000 unit) Tablet 50 mcg PO DAILY Liver Capsule 1 cap PO QPM Cbd Oil 1 dose topical DAILY multivitamin Tablet 1 tab PO DAILY ascorbic acid (vitamin C) [Vitamin C] 1,000 mg Tablet 1,000 mg PO DAILY Fish Oil 500 mg Capsule 500 mg PO DAILY vitamin E (dl, acetate) 180 mg (400 unit) Capsule 180 mg PO DAILY coQ10 (ubiquinol) 100 mg Capsule 100 mg PO DAILY Discharge Orders: Discharge Order (Routine); Ordered 01/31/25 Ordered By: Kenn Carias Admission Data Admit Date/Time: 01/28/25 12:13 Attending Provider: Kenn Carias Admit Provider: Kenn Carias Primary Care Provider: Carlos Rizo Other Providers: Yue Marks
[2025-01-31 11:33] VITALS: PULSE 76
== END 2025-01-31 14:22 | disposition home or self-care (01) | DRG 448 ==
LOC: ASU 08:29 → 3N 12:13